=== PATIENT | female | born 1970 | race Caucasian/White ===

== ENCOUNTER 2018-05-11 05:57 | Observation (INO) ==
--- NOTE | 2018-04-19 11:45 | Anesthesiology Consultation ---
Date of Service April 19, 2018 Assessment & Plan (1) Encounter for pre-operative examination: Chart Review Chart Review: Acceptable Risk for Surgery and Patient seen in Pre Admission Testing Consults Requested none Teaching & Discussion Pre-Anesthesia Teaching/Discussion Notes: Instructed NPO after midnight before surgery, except medications with 15 cc of water. Medication instructions provided according to the PAT guidelines. History Surgery Operation Date: 05/11/18 10:05 Proposed Procedures p C5-C6 Anterior Cervical Discectomy and Fusion - Checo Echevarria DO Height/Weight Height: 5 ft 4 in Weight: 77.2 kg Allergies Allergy/AdvReac Type Severity Reaction Status Date / Time doxycycline Allergy Unknown THROAT Verified 04/17/18 15:24 SWELLED AND HIVES nitrofurantoin Allergy Unknown DOESN'T Verified 04/17/18 15:24 REMEMBER prochlorperazine AdvReac Intermediate ANXIOUS/MARIA T Verified 04/17/18 15:24 EMMA Medications Home Medications Medication Instructions Recorded Confirmed Last Taken acetaminophen [Tylenol] 650 mg PO Q6H PRN 04/17/18 04/17/18 Unknown adalimumab [Humira Pen] 1 dose SUBCUT UD 04/17/18 04/17/18 Unknown albuterol sulfate 1 puff INHALATION Q6H PRN 04/17/18 04/17/18 Unknown atomoxetine 60 mg PO HS 04/17/18 04/17/18 Unknown atorvastatin 40 mg PO QAM 04/17/18 04/17/18 Unknown buspirone 10 mg PO TID 04/17/18 04/17/18 Unknown cetirizine 10 mg PO QAM 04/17/18 04/17/18 Unknown cyclobenzaprine 5 mg PO TID PRN 04/17/18 04/17/18 Unknown dicyclomine 20 mg PO TID 04/17/18 04/17/18 Unknown furosemide 40 mg PO QAM 04/17/18 04/17/18 Unknown gabapentin 300 mg PO TID 04/17/18 04/17/18 Unknown gabapentin 600 mg PO TID 04/17/18 04/17/18 Unknown ibuprofen 400 mg PO BID PRN 04/17/18 04/17/18 Unknown levothyroxine 137 mcg PO QAM 04/17/18 04/17/18 Unknown lorazepam 2 mg PO BID PRN 04/17/18 04/17/18 Unknown lorazepam 2 mg PO HS PRN 04/17/18 04/17/18 Unknown lubiprostone [Amitiza] 24 mcg PO BID 04/17/18 04/17/18 Unknown meclizine 25 mg PO TID PRN 04/17/18 04/17/18 Unknown metformin 500 mg PO QPM 04/17/18 04/17/18 Unknown montelukast 10 mg PO HS 04/17/18 04/17/18 Unknown omeprazole 40 mg PO QAM 04/17/18 04/17/18 Unknown promethazine 25 mg PO TID PRN 04/17/18 04/17/18 Unknown ranitidine HCl 150 mg PO BID 04/17/18 04/17/18 Unknown sucralfate [Carafate] 1 g PO ACHS 04/17/18 04/17/18 Unknown zolpidem [Ambien CR] 6.25 mg PO HS 04/17/18 04/17/18 Unknown Past Medical History Medical History Anxiety Asthma Chronic back pain Colitis Degenerative disc disease Depression Diabetes mellitus, type 2 GERD (gastroesophageal reflux disease) GI bleed H/O BLEEDING ULCERS H/O: pneumothorax R/T PNEUMONIA (2009) Hiatal hernia Hyperlipidemia Hypothyroidism Nausea & vomiting Osteoarthritis Peptic ulcer disease Post traumatic stress disorder Psoriasis Past Surgical History Surgical History Fusion of spine LUMBAR X3 WITH REVISIONS 08/18/17 - Attempted intubation with MAC #3, but poor view and small oral opening. Used a Glidescope #3 and ETT #7.0 without any difficulty. H/O hemorrhoidectomy History of appendectomy History of breast biopsy History of colonoscopy History of ear surgery BILATERAL EAR DRUM REPAIR History of esophagogastroduodenoscopy (EGD) History of hysterectomy CATRACHITA WITH UNILATERAL OOPHERECTOMY History of myringotomy History of tonsillectomy Hx of cholecystectomy Nausea and vomiting after administration of anesthetic agent Past Anesthesia History No Hx of Anesthesia Complications and No Family Hx of Anesthesia Complications History of PONV Yes Motion Sickness Screening History of Motion Sickness: Yes (If she sits in the back seat) STOP BANG Total 1 Social History Smoking Status: Current every day smoker tobacco type: cigarettes Smoking cigarettes per day: 10-20 CIGS X 20 YEARS Do You Dip or Chew Tobacco: No Hx Alcohol Use: Yes Alcohol type: hard liquor alcohol intake frequency: holidays/special occasions only Hx Substance Use: No substance use type: does not use Exercise / Class Metabolic Activity II 4-5 Yardwork/Stairs/Walk up hill (Works two jobs (bartends and metalworking). Able to climb FOS. Denies CP. Denies SOB. ) Review of Systems Patient denies chest pain, shortness of breath, dyspnea on exertion, cough, palpitations. +joint pain (back, neck, shoulder) +acid reflux (partially controlled by medications) +wheezing (when sick, helped by albuterol) Physical Exam Vital Signs BP: 123/84 P: 82 R: 16 T: 98.5 SPO2: 97% on RA ENMT Mouth: + small oral opening Thyromental Distance: > or= 3.5 Finger Breadths (3.5) Mallampati Class: II Mouth / Teeth: 1. Cap Neck normal visual inspection and trachea midline; neck extension not limited Respiratory normal respiratory effort Auscultation: lungs clear to auscultation bilaterally and + wheezes (Scattered wheezes, clear with cough) Cardiovascular Rate/Rhythm: regular rate and regular rhythm Heart Sounds: no murmur Vessels: no carotid bruit Neurologic moves all extremities Psychiatric Orientation: alert and oriented x 3 Testing Electrocardiogram Date: 02/14/18 Findings: + NSR @ (67) Chest X-Ray Date: 01/12/18 Findings: + NAD Stress Test Date: 06/28/17 Type: exercise Baseline EKG: Normal sinus rhythm. Stress EK.5mm flat to upsloping ST segment depression in leads II, 3, aVF, V5, and V6. These changes begin in stage to the Raymond protocol and resolved wit hin a minute of recovery. Peak Heart Rate: 155bpm, 91% of MPHR Impression: 1.Shortness of breath with exertion, no chest pain. 2. Normal hemodynamics response exercise. 3.Fair exercise capacity, limited somewhat by shortness of breath. 4. Borderline positive echocardiographic criteria for myocardial ischemia. 5. No stress induced wall motion abnormality. Conclusions: Exercise stress echocardiography is negative for exertional chest pain or electrocardiographic evidence for myocardial ischemia. Laboratory Results 04/19/18 12:21 04/19/18 12:21 Blood Type O Negative 04/19/18 12:21 Antibody Screen NEGATIVE 04/19/18 12:21 PT 10.1 Seconds (9.0-12.0) 04/19/18 12:21 INR 1.0 (0.9-1.1) 04/19/18 12:21 APTT 26.0 Seconds (21.0-31.0) 04/19/18 12:21 Hemoglobin A1c 7.7 % (4.5-5.6) H 04/19/18 12:21 Urine Color Yellow 04/19/18 Unknown Urine Appearance Clear (Clear) 04/19/18 Unknown Urine pH 8.0 (4.5-7.5) H 04/19/18 Unknown Ur Specific Reardan 1.013 (1.000-1.030) 04/19/18 Unknown Urine Protein Negative (Negative) 04/19/18 Unknown Urine Glucose (UA) 1+ (Negative) H 04/19/18 Unknown Urine Ketones Negative (Negative) 04/19/18 Unknown Urine Nitrite Negative (Negative) 04/19/18 Unknown Ur Leukocyte Esterase Negative (Negative) 04/19/18 Unknown
--- NOTE | 2018-04-19 12:08 | PAT Medication Instructions ---
Medication Instructions Date of Service April 19, 2018 Home Medications acetaminophen [Tylenol] 650 mg PO Q6H NEEDED adalimumab [Humira Pen] 1 dose SUBCUT UD albuterol sulfate 1 puff INHALATION Q6H NEEDED atomoxetine 60 mg PO HS atorvastatin 40 mg PO QAM buspirone 10 mg PO TID cetirizine 10 mg PO QAM cyclobenzaprine 5 mg PO TID NEEDED dicyclomine 20 mg PO TID furosemide 40 mg PO QAM gabapentin 300 mg PO TID gabapentin 600 mg PO TID ibuprofen 400 mg PO BID NEEDED levothyroxine 137 mcg PO QAM lorazepam 2 mg PO BID NEEDED lorazepam 2 mg PO HS NEEDED lubiprostone [Amitiza] 24 mcg PO BID meclizine 25 mg PO TID NEEDED metformin 500 mg PO QPM montelukast 10 mg PO HS omeprazole 40 mg PO QAM promethazine 25 mg PO TID NEEDED ranitidine HCl 150 mg PO BID sucralfate [Carafate] 1 g PO ACHS zolpidem [Ambien CR] 6.25 mg PO HS ASK your surgeon for instructions ibuprofen 400 mg PO BID NEEDED ASK your prescriber and surgeon adalimumab [Humira Pen] 1 dose SUBCUT UD DO NOT take the morning of surgery cetirizine 10 mg PO QAM cyclobenzaprine 5 mg PO TID NEEDED dicyclomine 20 mg PO TID furosemide 40 mg PO QAM sucralfate [Carafate] 1 g PO ACHS Take morning of surgery With a small sip of water, OTHERWISE NOTHING TO EAT OR DRINK AFTER MIDNIGHT: acetaminophen [Tylenol] 650 mg PO Q6H NEEDED albuterol sulfate 1 puff INHALATION Q6H NEEDED (bring to hospital) atorvastatin 40 mg PO QAM buspirone 10 mg PO TID gabapentin 300 mg PO TID gabapentin 600 mg PO TID levothyroxine 137 mcg PO QAM lorazepam 2 mg PO BID NEEDED lubiprostone [Amitiza] 24 mcg PO BID meclizine 25 mg PO TID NEEDED omeprazole 40 mg PO QAM promethazine 25 mg PO TID NEEDED ranitidine HCl 150 mg PO BID Take evening before surgery acetaminophen [Tylenol] 650 mg PO Q6H NEEDED albuterol sulfate 1 puff INHALATION Q6H NEEDED atomoxetine (Strattera) 60 mg PO HS buspirone 10 mg PO TID cyclobenzaprine 5 mg PO TID NEEDED dicyclomine 20 mg PO TID gabapentin 300 mg PO TID gabapentin 600 mg PO TID lorazepam 2 mg PO HS NEEDED lubiprostone [Amitiza] 24 mcg PO BID meclizine 25 mg PO TID NEEDED metformin 500 mg PO QPM montelukast 10 mg PO HS promethazine 25 mg PO TID NEEDED ranitidine HCl 150 mg PO BID sucralfate [Carafate] 1 g PO ACHS zolpidem [Ambien CR] 6.25 mg PO HS Other Notes If you have any questions please call us at [phone] or [phone] or [phone] or [phone]
[2018-04-19 13:12] LABS: Basophils # (auto) 0.03 K/uL (0-0.2); Basophils % (auto) 0.4 %; Eosinophils # (auto) 0.16 K/uL (0-0.5); Eosinophils % (auto) 1.9 %; Hematocrit (blood only) 40.3 % (37-47); Hemoglobin 13.8 g/dL (12.0-16.0); Immature Granulocytes # (auto) 0.02 K/uL (0.00-0.02); Immature Granulocytes % (auto) 0.2 %; Lymphocytes # (auto) 3.08 K/uL (1.2-3.4); Lymphocytes % (auto) 36.6 %; Mean Corpuscular Hgb Conc 34.2 g/dL (32-36); Mean Platelet Volume 10.8 fL (7.4-10.4); Monocytes # (auto) 0.54 K/uL (0.11-0.59); Monocytes % (auto) 6.4 %; Neutrophils # (auto) 4.59 K/uL (1.4-6.5); Neutrophils % (auto) 54.5 %; Platelet Count 211 K/uL (130-400); RDW Coefficient of Variation 13.2 % (11.5-14.5); RDW Standard Deviation 45.6 fL (36.4-46.3); Red Blood Count 4.24 M/uL (4.2-5.4); White Blood Count 8.42 K/uL (4.8-10.8)
[2018-04-19 13:14] LABS: Appearance Urine Clear (Clear); Bilirubin Urine Negative (Negative); Blood Urine Negative (Negative); Color Urine Yellow; Glucose Urine UA 1+ (Negative); Ketones Urine Negative (Negative); Leukocyte Esterase Urine Negative (Negative); Nitrite Urine Negative (Negative); Protein Urine Negative (Negative); Specific Gravity Urine 1.013 (1.000-1.030); Urobilinogen Urine Negative (Negative)
[2018-04-19 13:23] LABS: Prothrombin Time 10.1 Seconds (9.0-12.0)
[2018-04-19 14:43] LABS: BUN Creatinine Ratio 13.1 (10-20); Calcium 8.2 mg/dl (8.5-10.1); Creatinine Clr Calc Pharmacy 105.3 ml/min; Est GFR (African American) 120.8; Est GFR (Non-African American) 104.3; Potassium 3.8 mmol/L (3.5-5.1)
[2018-04-19 15:00] LABS: Estimated Average Glucose 174 mg/dl; Hemoglobin A1C 7.7 % (4.5-5.6)
[2018-05-11] MEDS ORDERED: LR 15ML/HR IV SCH (06:00)
[2018-05-11] MEDS ORDERED: ACETAMINOPHEN 500 MG TAB PO SCH (06:00)
[2018-05-11] MEDS ORDERED: SCOPOLAMINE 1.5 MG TDSY TD ONE (06:00)
[2018-05-11] MEDS ORDERED: CEFAZOLIN 1000MG 1,000 MG/7.5 ML SYR IV SCH (06:00)
[2018-05-11] MEDS ORDERED: CeleBREX 200 MG CAP PO SCH (06:00)
[2018-05-11] MEDS ORDERED: GABAPENTIN 300 MG x 3 PO SCH (06:00)
[2018-05-11] MEDS ORDERED: fentaNYL citrate 100 MCG/2 ML VIAL ONE (06:45)
[2018-05-11] MEDS ORDERED: MIDAZOLAM HCL 1 MG/ML 2ML VIAL ONE (06:45)
[2018-05-11] MEDS ORDERED: BACITRACIN INJ 50,000 UNIT VIAL ONE (06:58)
[2018-05-11] MEDS ORDERED: ONDANSETRON INJ 2 MG/ML 2 ML VIAL IV PRN ×2 (07:19→10:59)
[2018-05-11] MEDS ORDERED: ATROPINE SULFATE 0.1 MG/ML 10ML SYR IV PRN (07:19)
[2018-05-11] MEDS ORDERED: DEXAMETHASONE SOD INJ 4 MG/ML VIAL IV PRN (07:19)
[2018-05-11] MEDS ORDERED: HYDROmorphone INJ 2 MG/ML SYR/VIAL IV PRN (07:19)
[2018-05-11] MEDS ORDERED: KETOROLAC 30 MG/ML VIAL IV PRN (07:19)
[2018-05-11] MEDS ORDERED: ePHEDrine sulfate 50 MG/ML AMP IV PRN (07:19)
--- NOTE | 2018-05-11 07:30 | History & Physical Bridge Note ---
Date of Service May 11, 2018 History & Physical Bridge Note I have examined the patient, reviewed the History & Physical and in the interval since the performance of the History & Physical I have noted the following changes of clinical significance: no changes noted
--- NOTE | 2018-05-11 07:31 | History & Physical Report ---
Date of Service May 11, 2018 Assessment & Plan (1) Cervical stenosis of spinal canal: Anterior cervical discectomy and fusion C5-6 Present on Admission?: Yes History of Present Illness Chief Complaint: Neck and arm pain Primary Care Provider: Keith Obrien This is a 47-year-old female presents with chronic persistent neck and arm pain. After failing extensive course of nonoperative care is here for surgical intervention. Allergies Allergy/AdvReac Type Severity Reaction Status Date / Time doxycycline Allergy Unknown THROAT Verified 04/17/18 15:24 SWELLED AND HIVES nitrofurantoin Allergy Unknown DOESN'T Verified 04/17/18 15:24 REMEMBER prochlorperazine AdvReac Intermediate ANXIOUS/MARIA T Verified 04/17/18 15:24 EMMA Home Medications Home Medications Medication Instructions Recorded Confirmed Type acetaminophen [Tylenol] 650 mg PO Q6H PRN 04/17/18 05/11/18 History adalimumab [Humira Pen] 1 dose SUBCUT UD 04/17/18 05/11/18 History albuterol sulfate 1 puff INHALATION Q6H PRN 04/17/18 05/11/18 History atomoxetine 80 mg PO HS 04/17/18 05/11/18 History atorvastatin 40 mg PO QAM 04/17/18 04/17/18 History buspirone 10 mg PO TID 04/17/18 04/17/18 History cetirizine 10 mg PO QAM 04/17/18 05/11/18 History cyclobenzaprine 5 mg PO TID PRN 04/17/18 05/11/18 History dicyclomine 20 mg PO TID 04/17/18 05/11/18 History furosemide 40 mg PO QAM 04/17/18 05/11/18 History gabapentin 300 mg PO TID 04/17/18 04/17/18 History gabapentin 600 mg PO TID 04/17/18 04/17/18 History ibuprofen 400 mg PO BID PRN 04/17/18 05/11/18 History levothyroxine 137 mcg PO QAM 04/17/18 04/17/18 History lorazepam 2 mg PO BID PRN 04/17/18 05/11/18 History lubiprostone [Amitiza] 24 mcg PO BID 04/17/18 05/11/18 History meclizine 25 mg PO TID PRN 04/17/18 05/11/18 History metformin 500 mg PO QPM 04/17/18 05/11/18 History montelukast 10 mg PO HS 04/17/18 05/11/18 History omeprazole 40 mg PO QAM 04/17/18 04/17/18 History promethazine 25 mg PO TID PRN 04/17/18 05/11/18 History ranitidine HCl 150 mg PO BID 04/17/18 04/17/18 History sucralfate [Carafate] 1 g PO ACHS 04/17/18 05/11/18 History zolpidem [Ambien CR] 6.25 mg PO HS 04/17/18 05/11/18 History Past Med/Surg History Social History Preferred Language: Japanese Communication Ability: Effective Chaser Helper Required: No Beliefs That Will Affect Care: None Current Living Situation: Alone Other Information That Helps Us Care for You: No Feels Safe at Home: Yes Safety Concerns: Feels Safe At This Time Smoking Status: Current every day smoker Hx Alcohol Use: Yes Hx Substance Use: No Physical Exam Vital Signs (Past 24 Hours): Last Vital Signs Temp 36.6 C 05/11/18 06:42 Pulse 84 05/11/18 06:42 Resp 16 05/11/18 06:42 BP 103/76 05/11/18 06:42 Pulse Ox 96 05/11/18 06:42 Results & Data Medications Administered Acetaminophen (Tylenol) 1,000 mg PO PREOP RICHARD Stop: 05/11/18 18:00 Last Admin: 05/11/18 06:54 Dose: 1,000 mg Documented by: [id number] Celecoxib (Celebrex) 200 mg PO PREOP RICHARD Stop: 05/11/18 18:00 Last Admin: 05/11/18 06:55 Dose: 200 mg Documented by: [id number] Gabapentin (Neurontin) 900 mg PO PREOP RICHARD Stop: 05/11/18 18:00 Last Admin: 05/11/18 06:57 Dose: Not Given Documented by: [id number] Lactated Ringer's (Lr) 1,000 mls @ 15 mls/hr IV .Q24H RICHARD Stop: 05/12/18 05:59 Last Admin: 05/11/18 06:56 Dose: 15 mls/hr Documented by: [id number]
[2018-05-11] MEDS ORDERED: HYDROmorphone INJ 2 MG/ML SYR/VIAL ONE (07:58)
[2018-05-11] MEDS ORDERED: ONDANSETRON INJ 2 MG/ML 2 ML VIAL ONE (08:02)
[2018-05-11] MEDS ORDERED: GLYCOPYRROLATE 0.2 MG/ML VIAL ONE (08:02)
[2018-05-11] MEDS ORDERED: DEXAMETHASONE SOD INJ 4 MG/ML VIAL ONE (08:02)
[2018-05-11] MEDS ORDERED: ROCURONIUM BROMIDE 10 MG/ML 5 ML VIAL ONE (08:02)
[2018-05-11] MEDS ORDERED: LIDOCAINE HCL 2% 2 ML VIAL/AMP(20MG/ML) INFIL ONE (08:02)
[2018-05-11] MEDS ORDERED: NEOSTIGMINE METHYLSULFATE 1 MG/ML 10ML VIAL ONE (08:02)
[2018-05-11] MEDS ORDERED: PROPOFOL IV EMULSION 10 MG/ML 20 ML VIAL IV ONE (08:02)
[2018-05-11] MEDS ORDERED: PHENYLEPHRINE 100MCG/ML 5ML SYR ONE (08:25)
[2018-05-11] MEDS ORDERED: ePHEDrine sulfate 50 MG/ML SYR ONE (08:25)
[2018-05-11] MEDS ORDERED: FLOSEAL HEMOSTATIC MATRIX 10ML TOP ONE (08:43)
--- NOTE | 2018-05-11 08:57 | Operative Report ---
Post Operative Report Pre & Post Diagnosis Operation Date: 05/11/18 07:45 Pre-Op Diagnosis: Cervical spinal stenosis with radiculopathy Post-Op Diagnosis: Same Procedure Operation Date: 05/11/18 07:45 Actual Procedures #1 anterior cervical discectomy bilateral foraminotomies C5-6. #2 anterior cervical arthrodesis C5-6. #3 placement of cortical allograft filled with DBM 6 mm in height C5-6. #4 application bowman plate and screws across C5-6. Surgeon Checo Echevarria DO [employer] Laborer None Estimated Blood Loss 10 Findings Consistent with Post-Op Diagnosis Specimens None Description of Procedure Patient was met with preoperatively case discussed all questions addressed. After informed consent obtained patient was taken to the operative suite underw ent intubation and placed in a supine position the Mehdi table with the head Sainz head of precision targeting. All bony prominences well-padded eyes inspected to ensure no external pressure placed upon. This point the anterior cervical spine was prepped and draped in a normal sterile fashion. With the assistance of fluoroscopy identified the C5-6 displacement transverse incision was placed along the right anterior aspect of the cervical spine aligns region. Sharp dissection with the assistance of bipolar elective cautery was performed down to and exposing the anterior cervical spine at C5-6. Self-retaining retractor was placed. A complete discectomy was then performed including removal of all posterior annular fibers longitudinal ligament bilateral foraminotomies. Endplates were then burred to subcortical bleeding bone and a 6 mm cortical allograft filled with DBM tamped in position. 14 mm bowman plate and screws was then applied with the assistance of fluoroscopy. Incision was then copious irrigated explored to ensure no damage to surrounding structures remaining bleeding. A 10 round LIZ drain was then inserted. Incision was then closed with 2 Vicryl in the fashion of 4 Monocryl for Fransen closure. Steri-Strip sterile dressings placed. Patient will continue to PACU stable condition. I attest to the content of the Intraoperative Record and any orders documented therein. Any exceptions are noted below.
[2018-05-11] MEDS: fentaNYL citrate 100 MCG/2 ML VIAL IV PRN ×2 (09:21→09:40)
--- NOTE | 2018-05-11 09:23 | Fluoroscopy Report ---
INTRAOPERATIVE RADIOGRAPHS CLINICAL HISTORY: C5-C6 spinal fusion. Fluoroscopy time: 6 seconds. FINDINGS: 2 spot fluoroscopic views of the cervical spine are presented. There has been discectomy at C5-C6 with anterior fusion at these levels. The orthopedic hardware appears intact. Alignment is carin ntained. An endotracheal tube is in place. IMPRESSION: Intraoperative images from anterior C5-C6 spinal fusion as above. Electronically signed by: Yunier Gaines M.D. 05/11/2018 9:22 AM
--- NOTE | 2018-05-11 10:12 | Anesthesiology Progress Note ---
Date of Service May 11, 2018 Anesthesia Post Procedure Vital Signs Vital Signs: Temp Pulse Pulse Resp BP BP Pulse Ox 05/11/18 10:05 36.2 C L 82 17 97/72 L 95 05/11/18 09:55 79 12 110/70 95 05/11/18 09:45 80 16 116/65 97 05/11/18 09:35 79 12 97/73 L 99 05/11/18 09:25 83 19 115/64 99 05/11/18 09:15 93 H 15 123/71 98 05/11/18 09:09 36.0 C L 90 12 115/71 100 05/11/18 06:42 36.6 C 84 16 103/76 96 Pain Intensity Neck: Pain Intensity: 4 Notes Mental Status: alert / awake / arousable and participated in evaluation Patient Amnestic to Procedure: Yes Nausea / Vomiting: adequately controlled Pain: adequately controlled Airway Patency, RR, SpO2: stable & adequate BP & HR: stable & adequate Hydration State: stable & adequate Anesthetic Complications: no major complications apparent
[2018-05-11] MEDS ORDERED: PROMETHAZINE HCL 25 MG TAB PO PRN (10:59)
[2018-05-11] MEDS ORDERED: ALBUTEROL HFA 8 GM INHALER INH PRN (10:59)
[2018-05-11] MEDS ORDERED: DiphenhydrAMINE HCL 50 MG/ML VIAL IV PRN (10:59)
[2018-05-11] MEDS ORDERED: ACETAMINOPHEN 325 MG TAB PO PRN (10:59)
[2018-05-11] MEDS ORDERED: RACEPINEPHRINE 2.25% NEBU SOLN 0.5 ML VIAL INH PRN (10:59)
[2018-05-11] MEDS ORDERED: MAGNESIUM HYDROXIDE SUSP 30 ML UDC PO PRN (10:59)
[2018-05-11] MEDS ORDERED: LORazepam 0.5 MG TAB PO PRN (10:59)
[2018-05-11] MEDS ORDERED: HYDROmorphone INJ 0.5 MG/0.5 ML SYR IV PRN (10:59)
[2018-05-11] MEDS ORDERED: MECLIZINE HCL 25 MG TAB PO PRN (10:59)
[2018-05-11] MEDS ORDERED: DEXAMETHASONE SOD PHOSPHATE 8 MG in SYRINGE 0 ML IV PRN (10:59)
[2018-05-11] MEDS ORDERED: NALOXONE HCL 0.4 MG/1 ML VIAL/CARP IV PRN (10:59)
[2018-05-11] MEDS ORDERED: ACETAMINOPHEN 1,000 MG/100 ML VIAL IV PRN (10:59)
[2018-05-11] MEDS ORDERED: DO NOT ADMINISTER PNEUMOCOCCAL VACCINE PRN (10:59)
[2018-05-11] MEDS ORDERED: CYCLOBENZAPRINE HCL 5 MG TAB PO PRN (10:59)
[2018-05-11] MEDS ORDERED: DO NOT ADMINISTER FLU VACCINE PRN (10:59)
[2018-05-11] MEDS ORDERED: IBUPROFEN 200 MG TAB PO PRN (10:59)
[2018-05-11] MEDS ORDERED: LORazepam 0.5 MG/1 ML VIAL IV PRN (10:59)
[2018-05-11] MEDS ORDERED: SCOPOLAMINE 1.5 MG TDSY TD SCH (12:00)
[2018-05-11] MEDS ORDERED: LORAZEPAM 2 MG PO PRN (12:00)
[2018-05-11] MEDS: LACTATED RINGER'S 1,000 ML IV SCH ×2 (12:25→23:31)
[2018-05-11] MEDS: SUCRALFATE 1 GM TAB PO SCH ×3 (12:26→21:45)
[2018-05-11] MEDS: OXYCODONE HCL IR 5 MG TAB (IMMEDIATE RELEASE) PO PRN ×2 (12:28→17:37)
[2018-05-11] MEDS: DICYCLOMINE HCL 20 MG TAB PO SCH ×2 (13:41→21:44)
[2018-05-11] MEDS: GABAPENTIN 600 MG TAB PO SCH ×2 (13:41→21:43)
[2018-05-11] MEDS: GABAPENTIN 300 MG CAP PO SCH ×2 (13:41→21:43)
[2018-05-11] MEDS: CEFAZOLIN 2000MG 2,000 MG/15 ML SYR IV SCH ×2 (14:43→22:06)
[2018-05-11] MEDS: CHECK SCOPOLAMINE PATCH PLACEMENT SCH (15:57)
[2018-05-11] MEDS ORDERED: CHECK SCOPOLAMINE PATCH PLACEMENT SCH (16:00)
[2018-05-11] MEDS ORDERED: METFORMIN HCL 500 MG TAB PO SCH (16:30)
[2018-05-11] MEDS ORDERED: MONTELUKAST SODIUM 10 MG TABLET PO SCH (21:00)
[2018-05-11] MEDS ORDERED: ATOMOXETINE HCL 40 MG CAPSULE PO SCH (21:00)
[2018-05-11] MEDS: LUBIPROSTONE 8 MCG CAP PO SCH (21:43)
[2018-05-11] MEDS: DOCUSATE SODIUM 100 MG CAP PO SCH (21:43)
[2018-05-11] MEDS: LORazepam 1 MG TAB PO PRN (22:05)
[2018-05-12] MEDS: CHECK SCOPOLAMINE PATCH PLACEMENT SCH ×2 (01:02→08:57)
[2018-05-12] MEDS: CEFAZOLIN 2000MG 2,000 MG/15 ML SYR IV SCH (05:42)
[2018-05-12] MEDS ORDERED: LEVOTHYROXINE SODIUM 137 MCG TABLET PO SCH (06:30)
[2018-05-12] MEDS: SUCRALFATE 1 GM TAB PO SCH ×2 (08:56→12:24)
[2018-05-12] MEDS: DOCUSATE SODIUM 100 MG CAP PO SCH (08:57)
[2018-05-12] MEDS: DICYCLOMINE HCL 20 MG TAB PO SCH (08:57)
[2018-05-12] MEDS: LUBIPROSTONE 8 MCG CAP PO SCH (08:57)
[2018-05-12] MEDS: GABAPENTIN 600 MG TAB PO SCH (08:57)
[2018-05-12] MEDS: GABAPENTIN 300 MG CAP PO SCH (08:58)
[2018-05-12] MEDS ORDERED: FUROSEMIDE 40 MG TAB PO SCH (09:00)
[2018-05-12] MEDS ORDERED: PANTOprazole 40 MG TAB PO SCH (09:00)
[2018-05-12] MEDS ORDERED: CETIRIZINE HCL 10 MG TABLET PO SCH (09:00)
[2018-05-12] MEDS ORDERED: ATORVASTATIN 40 MG TAB PO SCH (09:00)
[2018-05-12] MEDS: OXYCODONE HCL IR 5 MG TAB (IMMEDIATE RELEASE) PO PRN ×2 (09:03→13:05)
--- NOTE | 2018-05-12 09:48 | Anesthesiology Progress Note ---
Date of Service May 12, 2018 Anesthesia Post Procedure Vital Signs Vital Signs: Temp Pulse Pulse Pulse Pulse Resp BP 05/12/18 09:00 36.2 C L 75 16 100/63 05/12/18 07:00 36.8 C 76 16 109/72 05/12/18 06:46 81 16 05/12/18 05:40 36.7 C 73 16 104/64 05/12/18 03:40 36.7 C 90 16 91/52 L 05/12/18 03:31 76 18 05/12/18 01:40 36.8 C 73 18 109/65 05/12/18 00:00 72 16 05/11/18 23:54 36.3 C L 61 15 102/65 05/11/18 21:40 36.4 C L 85 18 104/59 L 05/11/18 19:40 36.7 C 95 H 18 103/65 05/11/18 19:32 81 16 05/11/18 17:40 36.6 C 75 16 106/62 05/11/18 15:40 36.6 C 90 16 97/63 L 05/11/18 14:32 90 18 05/11/18 13:38 36.6 C 80 12 87/52 L 05/11/18 12:40 84 16 95/61 L 05/11/18 11:40 36.4 C L 75 16 96/59 L 05/11/18 11:11 86 16 05/11/18 11:10 36.3 C L 71 12 117/64 05/11/18 10:20 82 12 108/60 05/11/18 10:05 36.2 C L 82 17 97/72 L 05/11/18 09:55 79 12 110/70 Pulse Ox Pulse Ox 05/12/18 09:00 94 05/12/18 07:00 94 94 05/12/18 06:46 93 05/12/18 05:40 96 05/12/18 03:40 96 05/12/18 03:31 96 05/12/18 01:40 94 05/12/18 00:00 94 05/11/18 23:54 97 05/11/18 21:40 95 05/11/18 19:40 95 05/11/18 19:32 95 05/11/18 17:40 95 05/11/18 15:40 97 05/11/18 14:32 94 05/11/18 13:38 96 05/11/18 12:40 98 05/11/18 11:40 94 05/11/18 11:11 94 05/11/18 11:10 96 05/11/18 10:20 94 05/11/18 10:05 95 05/11/18 09:55 95 Pain Intensity Neck: Pain Intensity: 4 Notes Mental Status: alert / awake / arousable and participated in evaluation Patient Amnestic to Procedure: Yes Nausea / Vomiting: adequately controlled Pain: adequately controlled Airway Patency, RR, SpO2: stable & adequate BP & HR: stable & adequate Hydration State: stable & adequate Anesthetic Complications: no major complications apparent and Pt Satisfied with anesthetic care
--- NOTE | 2018-05-12 09:55 | Discharge Summary ---
Date of Service May 12, 2018 Admission HPI Per Admitting Provider This is a 47-year-old female presents with chronic persistent neck and arm pain. After failing extensive course of nonoperative care is here for surgical intervention. Principal Diagnosis Cervical spinal stenosis with radiculopathy Discharge Data Allergies Allergy/AdvReac Type Severity Reaction Status Date / Time doxycycline Allergy Unknown THROAT Verified 04/17/18 15:24 SWELLED AND HIVES nitrofurantoin Allergy Unknown DOESN'T Verified 04/17/18 15:24 REMEMBER prochlorperazine AdvReac Intermediate ANXIOUS/MARIA T Verified 04/17/18 15:24 EMMA Procedures Performed Operation Date: 05/11/18 07:45 Actual Procedures p C5-C6 Anterior Cervical Discectomy and Fusion(Not Applicable) - Checo Echevarria DO Ordered Studies 05/11/18 07:45 FL cervical 2-3V Routine FL fluoroscopy <1hr Routine Hospital Course (1) Cervical stenosis of spinal canal: Patient underwent anterior cervical discectomy and fusion tolerated this well was taken to the orthopedic floor postoperative. Postop day and when she was swelling nicely no hoarseness. Arm symptoms markedly improved. LIZ drain decreasing appropriately. Subsequently discharged home. Discharge instructions can be found in chart for further review. Total Time Total Time Spent Total Time Spent (In Minutes): Not applicable Discharge Plan Discharge Items Patient Disposition: Home - Self-Care Reason For Visit: Spinal Stenosis, Cervical Region Discharge Diagnosis: cervical stenosis Discharge Goals: Decrease discomfort Activity: Per 'Additional Instructions' section Non-emergency contact: Primary Care Provider Call non-emergency contact if: you have any medication questions Follow-up/Referrals: Keith Obrien MD [Primary Care Provider] - Diet: Regular Addtl Provider Instructions: ACTIVITY RECOMMENDATIONS: SELF CARE INSTRUCTIONS AFTER THORACIC/LUMBAR FUSIONS 1. You may walk to your tolerance. It is good exercise for your legs and back. Expect some back and intermittent leg aches and pains. 2. You may perform "counter-top" level activities (make a sandwich, catracho with a project, etc.). 3. No bending or lifting of more than 10 pounds or back twisting of any nature (roll like a log when turning in bed). 4. You may ride in a car for 20-30 minutes at a time. No driving until after your first visit with your doctor. 5. Frequent changes of position and restricting sitting to 30 minutes at a time will help limit the amount of back spasms and stiffness you may experience. 6. You may discontinue the use of ambulatory aids (cane, crutches, etc.) once your strength and confidence allow. 7. You may financing analyst the shower and let water strike your incision when you arrive home at least once daily. Do not take a tub bath, sit in a hot tub or go into a swimming pool until after your first recheck in the office. SPECIAL CARE INSTRUCTIONS: VERY IMPORTANT TO READ AND REVIEW A. Your surgical incision has been closed with a cosmetic suture under the skin that will dissolve in about 6 weeks. In 14 days, you can use a pair of clean scissors and cut the suture that is left outside of the skin at the ends of your incision. 1. The small skin tapes can be removed 7 days after surgery if they have not fallen off by that point. 2. You may keep the wound open to air as much as possible to promote healing after post-op day number 5 unless told otherwise by your doctor. 3. If you think the wound looks like it is becoming infected (redness or worsening drainage) and/or you are experiencing fever, chill or worsening back pain and muscle spasms, contact the office so that we may evaluate you as soon as possible. B. Complications are uncommon, but please contact us if you have any signs or symptoms of: 1. wound infection (fever higher than 102.5 degrees F, redness, separation of wound, drainage, or increasing pain from the incision) 2. blood clots in legs (pain, swelling, redness and warmth in legs) 3. urinary tract infection (fever higher than 102.5 degrees F, burning upon urination or increased frequency of urination) 4. nerve problems (inability to walk on your toes or heels, numbness, loss of bowel or bladder control) 5. any other symptoms that concern you C. Please call the office at if you have any concerns or questions about your operation or recovery. D. No smoking! Smoking drastically decreases the chance of a solid fusion. E. Do not take any anti-inflammatory medications (Indocin, Advil, Motrin, Aspirin, Naprosyn, etc.) as these may inhibit the chance of a solid fusion. Tylenol is okay to take for pain. MANAGING PAIN AFTER SPINAL SURGERY 1. Narcotic medication is intended for short-term use and will be provided for surgical pain. Surgical pain usually lasts for a period of 4-6 weeks. Narcotic medication includes Percocet, Vicodin, Darvocet, Tylenol #3 or Lortab. 2. Longer-term pain is more appropriately treated with non-narcotic medication such as Tylenol ES. 3. Muscle spasm is not appropriately treated with narcotics. Muscle relaxers such as Soma, Flexeril or Skelaxin can be used along with Tylenol ES. 4. Remember that we all live with some "aches and pains". This is not unusual or uncommon after an injury or as we get older. a. Back pain is expected and may include muscle spasms for 4 to 6 weeks after surgery. The pain should gradually improve. If the pain worsens for no apparent reason, please contact the office. b. Intermittent leg pain may also be experienced and should not be concerned about unless it worsens for no apparent reason. If so, please contact the office. 5. We will provide appropriate medication within the normal guidelines of their prescribed use. We will also be very cautious and aware of potential abuse and extended duration of patients' medication needs. a. Pain medications are for your comfort and to assist with sleep and rest so that the tissue can heal. They are not provided in order to return to normal activity and should not be used through the day. To do so or worsening pain at night can result from ongoing tissue damage and development of tolerance to the prescribed medicine. 6. Please allow 2-3 days to process refills. Prescriptions will not be mailed but must be picked up at the office. FOLLOW UP VISIT: Keep your scheduled follow-up appointment. Any questions, please call the office at . Prescriptions: New oxycodone 5 mg Tablet 5 mg PO Q4H PRN (Reason: Pain) Qty: 20 RF: 0 Continued ibuprofen 200 mg Tablet 400 mg PO BID PRN (Reason: Pain) RF: 0 atorvastatin 40 mg Tablet 40 mg PO QAM RF: 0 atomoxetine 60 mg Capsule 80 mg PO HS RF: 0 Humira Pen 40 mg/0.8 mL Pen Injector Kit 1 dose SUBCUT UD RF: 0 furosemide 40 mg Tablet 40 mg PO QAM RF: 0 metformin 500 mg Tablet 500 mg PO QPM RF: 0 levothyroxine 137 mcg Tablet 137 mcg PO QAM RF: 0 acetaminophen [Tylenol] 325 mg Tablet 650 mg PO Q6H PRN (Reason: Pain) RF: 0 gabapentin 600 mg Tablet 600 mg PO TID RF: 0 cetirizine 10 mg Tablet 10 mg PO QAM RF: 0 sucralfate [Carafate] 1 gram Tablet 1 g PO ACHS RF: 0 omeprazole 40 mg Capsule,Delayed Release(Dr/Ec) 40 mg PO QAM RF: 0 dicyclomine 20 mg Tablet 20 mg PO TID RF: 0 lorazepam 2 mg Tablet 2 mg PO BID PRN (Reason: Anxiety) RF: 0 meclizine 25 mg Tablet 25 mg PO TID PRN (Reason: Vertigo) RF: 0 ranitidine HCl 150 mg Tablet 150 mg PO BID RF: 0 buspirone 10 mg Tablet 10 mg PO TID RF: 0 promethazine 25 mg Tablet 25 mg PO TID PRN (Reason: Nausea) RF: 0 gabapentin 300 mg Capsule 300 mg PO TID RF: 0 montelukast 10 mg Tablet 10 mg PO HS RF: 0 albuterol sulfate 90 mcg/actuation Hfa Aerosol Inhaler 1 puff INHALATION Q6H PRN (Reason: SOB) RF: 0 cyclobenzaprine 5 mg Tablet 5 mg PO TID PRN (Reason: Back Pain) RF: 0 zolpidem [Ambien CR] 6.25 mg Tablet,Ext Release Multiphase 6.25 mg PO HS RF: 0 Amitiza 24 mcg Capsule 24 mcg PO BID RF: 0 Stand-Alone Forms: [facility] Discharge Orders: Discharge Order (Routine); Ordered 05/12/18 Ordered By: Checo Echevarria Admission Data Admit Date/Time: 05/11/18 09:04 Attending Provider: Checo Echevarria Admit Provider: Checo Echevarria Primary Care Provider: Keith Obrien Service: Surgical Services
[2018-05-12] MEDS ORDERED: COUGH DROP (SUGAR FREE) LOZ 24 LOZ/1 BOX BUCCAL ONE (11:16)
[2018-05-12] MEDS ORDERED: COUGH DROP (SUGAR FREE) LOZ 24 LOZ/1 BOX BUCCAL PRN (11:17)
[2018-05-12] MEDS: LORazepam 1 MG TAB PO PRN (13:05)
[2018-05-12] MEDS: LACTATED RINGER'S 1,000 ML IV SCH (13:06)
== END 2018-05-12 14:01 | disposition home or self-care (01) ==
LOC: 3E 05:57 → ASU 05:57